=== PATIENT | male | born 1940 | race Caucasian/White ===

== ENCOUNTER 2017-01-24 00:44 | Inpatient (IN) | payer MEDICARE ==
[2017-01-23 23:30] VITALS: BP 146/65
[~2017-01-24] VITALS: Ht 177.8 cm; Wt 91.3 kg
[2017-01-24] MEDS ORDERED: DILT120C64 PO (00:57)
[2017-01-24] MEDS ORDERED: WARF3TAB PO (00:58)
[2017-01-24] MEDS ORDERED: ASPI-770 PO (00:59)
[2017-01-24] MEDS ORDERED: DONE5TAB14 PO (01:03)
[2017-01-24] MEDS ORDERED: FURO80TA3 PO (01:04)
[2017-01-24] MEDS ORDERED: METF10002 PO (01:08)
[2017-01-24 01:13] VITALS: BP 155/79
[2017-01-24] MEDS ORDERED: DEXTROSE 50%, 50ML SYRINGE IVPush PRN (02:00)
[2017-01-24] MEDS ORDERED: ONDANSETRON 2MG/ML, 2ML IVPush PRN (02:00)
[2017-01-24] MEDS ORDERED: GLUCAGON 1 MG IM PRN (02:00)
[2017-01-24] MEDS ORDERED: DEXTROSE 4 GM TAB.CHEW PO PRN (02:00)
[2017-01-24] MEDS: SODIUM CHLORIDE 0.9% 1,000 ML IV SCH ×2 (02:13→15:27)
[2017-01-24] MEDS: ACETAMINOPHEN 325 MG TABLET PO PRN ×3 (05:31→20:35)
[2017-01-24 05:52] LABS: BLOOD UREA NITROGEN 57 mg/dL (7-18)
[2017-01-24 05:56] LABS: ASPARTATE AMINO TRANSFERASE 15 U/L (15-37); HEMATOCRIT 37.1 % (39.2-51.8); HEMOGLOBIN 12.6 g/dL (13.7-18.0); WHITE BLOOD COUNT 10.3 x10^3/uL (3.4-10)
[2017-01-24] MEDS: DONEPEZIL 5 MG TABLET PO SCH (09:02)
[2017-01-24] MEDS: ASPIRIN 81 MG TABLET CHEW PO SCH (09:02)
[2017-01-24] MEDS: SODIUM CHLORIDE FLUSH 10ML SYR IVF SCH ×2 (09:02→20:35)
[2017-01-24] MEDS: DILTIAZEM 120 MG CAP.ER.24H PO SCH (09:02)
[2017-01-24 12:36] LABS: BLOOD UREA NITROGEN 56 mg/dL (7-18)
[2017-01-24] MEDS ORDERED: INSULIN ASPART 100 UNITS/ML, VIAL SQ-INSULIN ONE (13:00)
[2017-01-24] MEDS ORDERED: INSULIN ASPART 100 UNITS/ML, PEN SQ-INSULIN ONE ×3 (13:30→20:30)
[2017-01-24] MEDS: ENOXAPARIN 30 MG/0.3 ML SQ SCH (13:38)
[2017-01-24 13:42] VITALS: BP 138/80
[2017-01-24] MEDS ORDERED: INSULIN ASPART 100 UNITS/ML, PEN SQ-INSULIN SCH (17:00)
[2017-01-24] MEDS ORDERED: WARFARIN 3 MG TABLET PO-COUM SCH (18:00)
[2017-01-24] MEDS: morphine SULFATE 10 MG/ML, 1ML IVPush PRN (18:04)
[2017-01-24 18:30] VITALS: BP 143/73
[2017-01-25 02:00] VITALS: BP 142/85
[2017-01-25] MEDS: SODIUM CHLORIDE 0.9% 1,000 ML IV SCH ×2 (03:06→16:23)
[2017-01-25 06:10] LABS: HEMATOCRIT 38.9 % (39.2-51.8); HEMOGLOBIN 12.8 g/dL (13.7-18.0); WHITE BLOOD COUNT 12.1 x10^3/uL (3.4-10)
[2017-01-25 06:32] LABS: ASPARTATE AMINO TRANSFERASE 15 U/L (15-37); BLOOD UREA NITROGEN 51 mg/dL (7-18); TOTAL IRON BINDING CAPACITY 307 mcg/dL (250-450)
[2017-01-25] MEDS: DILTIAZEM 120 MG CAP.ER.24H PO SCH (08:48)
[2017-01-25] MEDS: ASPIRIN 81 MG TABLET CHEW PO SCH (08:48)
[2017-01-25] MEDS: ENOXAPARIN 30 MG/0.3 ML SQ SCH (08:48)
[2017-01-25] MEDS: DONEPEZIL 5 MG TABLET PO SCH (08:49)
[2017-01-25] MEDS: SODIUM CHLORIDE FLUSH 10ML SYR IVF SCH ×2 (08:49→20:46)
[2017-01-25] MEDS: morphine SULFATE 10 MG/ML, 1ML IVPush PRN (08:56)
[2017-01-25 09:09] VITALS: BP 150/92
[2017-01-25] MEDS ORDERED: SODIUM POLYSTYRENE SULFONATE ORAL SUSP PO ONE (12:30)
[2017-01-25 13:02] VITALS: BP 134/71
[2017-01-25] MEDS: ENOXAPARIN 80 MG/0.8 ML SQ SCH (14:03)
[2017-01-25] MEDS ORDERED: INSULIN ASPART 100 UNITS/ML, PEN SQ-INSULIN ONE ×2 (16:00→18:00)
[2017-01-25] MEDS: WARFARIN 5 MG TABLET PO-COUM SCH (17:16)
[2017-01-25 20:34] VITALS: BP 154/80
[2017-01-26 02:37] VITALS: BP 168/85
[2017-01-26] MEDS: ENOXAPARIN 80 MG/0.8 ML SQ SCH (02:39)
[2017-01-26] MEDS: SODIUM CHLORIDE 0.9% 1,000 ML IV SCH ×2 (03:33→14:00)
[2017-01-26 07:23] VITALS: BP 103/78
[2017-01-26] MEDS: DILTIAZEM 120 MG CAP.ER.24H PO SCH (08:42)
[2017-01-26] MEDS: DONEPEZIL 5 MG TABLET PO SCH (08:42)
[2017-01-26] MEDS: ASPIRIN 81 MG TABLET CHEW PO SCH (08:42)
[2017-01-26] MEDS: SODIUM CHLORIDE FLUSH 10ML SYR IVF SCH ×2 (08:43→21:00)
[2017-01-26 10:17] LABS: HEMATOCRIT 35.5 % (39.2-51.8); HEMOGLOBIN 11.9 g/dL (13.7-18.0); WHITE BLOOD COUNT 9.2 x10^3/uL (3.4-10)
[2017-01-26 10:20] LABS: BLOOD UREA NITROGEN 41 mg/dL (7-18)
[2017-01-26 10:23] LABS: ASPARTATE AMINO TRANSFERASE 12 U/L (15-37)
[2017-01-26] MEDS ORDERED: INSULIN ASPART 100 UNITS/ML, PEN SQ-INSULIN ONE ×4 (11:00→21:30)
[2017-01-26] MEDS: morphine SULFATE 10 MG/ML, 1ML IVPush PRN (11:42)
[2017-01-26] MEDS ORDERED: INSULIN DETEMIR 100 UNITS/ML, PEN SQ-INSULIN SCH (12:00)
[2017-01-26 15:49] VITALS: BP 170/88
[2017-01-26] MEDS: WARFARIN 5 MG TABLET PO-COUM SCH (17:39)
[2017-01-26 21:00] VITALS: BP_SYST 161; BP_SYST 163; BP_DIAS 76; BP_DIAS 88
[2017-01-27 01:44] VITALS: BP 173/74
[2017-01-27] MEDS ORDERED: ENOXAPARIN 80 MG/0.8 ML SQ SCH (02:00)
[2017-01-27 05:03] LABS: HEMATOCRIT 33.7 % (39.2-51.8); HEMOGLOBIN 11.3 g/dL (13.7-18.0); WHITE BLOOD COUNT 9.4 x10^3/uL (3.4-10)
[2017-01-27 05:21] LABS: ASPARTATE AMINO TRANSFERASE 13 U/L (15-37); BLOOD UREA NITROGEN 44 mg/dL (7-18)
[2017-01-27 07:54] VITALS: BP 139/82
[2017-01-27] MEDS ORDERED: INSULIN DETEMIR 100 UNITS/ML, PEN SQ-INSULIN SCH (09:00)
[2017-01-27] MEDS ORDERED: WARF4TAB7 PO (09:06)
[2017-01-27] MEDS ORDERED: GLIM1TAB2 PO (09:06)
[2017-01-27] MEDS ORDERED: POLY17PO5 PO (09:08)
[2017-01-27] MEDS ORDERED: OXYC-306 PO (09:08)
[2017-01-27] MEDS: DONEPEZIL 5 MG TABLET PO SCH (09:09)
[2017-01-27] MEDS: ASPIRIN 81 MG TABLET CHEW PO SCH (09:09)
[2017-01-27] MEDS: DILTIAZEM 120 MG CAP.ER.24H PO SCH (09:10)
[2017-01-27] MEDS: SODIUM CHLORIDE 0.9% 1,000 ML IV SCH ×2 (09:11)
[2017-01-27] MEDS: SODIUM CHLORIDE FLUSH 10ML SYR IVF SCH (09:43)
[2017-01-27] MEDS ORDERED: INSULIN ASPART 100 UNITS/ML, PEN SQ-INSULIN ONE (12:00)
[2017-01-27 13:23] VITALS: BP 161/82
[2017-01-27] MEDS: morphine SULFATE 10 MG/ML, 1ML IVPush PRN (13:57)
[2017-01-27] MEDS ORDERED: OMEPRAZOLE 20 MG CAPSULE.DR PO ONE (14:00)
[2017-01-27] MEDS ORDERED: CALCIUM CARBONATE 500 MG TAB.CHEW PO SCH (14:00)
== END 2017-01-27 15:20 | DRG 682 ==
LOC: 4EST 00:44
PROVIDERS: ADMIT Hospitalist; ATTEND Internal Medicine
DX: N17.9 Acute kidney failure, unspecified (principal); E43 Unspecified severe protein-calorie malnutrition; G93.40 Encephalopathy, unspecified; E11.22 Type 2 diabetes mellitus with diabetic chronic kidney disease; E11.649 Type 2 diabetes mellitus with hypoglycemia without coma; D68.69 Other thrombophilia; E87.5 Hyperkalemia; I48.91 Unspecified atrial fibrillation; D64.9 Anemia, unspecified; N18.4 Chronic kidney disease, stage 4 (severe); F03.90 Unspecified dementia, unspecified severity, without behavioral disturbance, psychotic disturbance, mood disturbance, and anxiety; M19.011 Primary osteoarthritis, right shoulder; M75.101 Unspecified rotator cuff tear or rupture of right shoulder, not specified as traumatic; Z79.01 Long term (current) use of anticoagulants; Z79.4 Long term (current) use of insulin; Z87.891 Personal history of nicotine dependence; Z68.28 Body mass index [BMI] 28.0-28.9, adult; T50.2X5A Adverse effect of carbonic-anhydrase inhibitors, benzothiadiazides and other diuretics, initial encounter; T38.3X5A Adverse effect of insulin and oral hypoglycemic [antidiabetic] drugs, initial encounter; Y92.89 Other specified places as the place of occurrence of the external cause
CPT/HCPCS: 36415; 70450; 76770; 80053; 81001; 82565; 82570; 82962; 83036; 83540; 83550; 83735; 84100; 84156; 84520; 85025; 85610; 87324; 93005; J1650; J1815; J2270; J7030